=== PATIENT | male | born 1990 | race Caucasian/White ===

== ENCOUNTER 2020-02-03 18:02 | Emergency (ER) | payer OTHER ==
[2020-02-03 18:32] VITALS: BP 123/85
--- NOTE | 2020-02-03 18:54 | UC ---
Dental HPI - HPI Summary HPI Summary: Pt c/o right lower jaw pain and tooth tenderness. Pt reports a filling fell out 7 months prior and has been unable to follow up with a dentist due to loss of insurance and now COVID pandemic. Pt reports that pain is worsening over the last 24 hours. - History of Current Complaint Chief Complaint: UCDentalProblem Stated Complaint: DENTAL COMPLAINT Time Seen by Provider: 02/03/20 18:12 Hx Obtained From: Patient Onset/Duration: Gradual Onset, Lasting Days, Still Present, Worse Since - onset Severity: Moderate Pain Intensity: 7 Pain Scale Used: 0-10 Numeric Aggravating Factor(s): Cold, Chewing Alleviating Factor(s): Nothing Related History: Previous Dental Care on Same Tooth, Swelling - Allergies/Home Medications Allergies/Adverse Reactions: Allergies Allergy/AdvReac Type Severity Reaction Status Date / Time amoxicillin Allergy Unknown Unknown Verified 02/03/20 18:32 Reaction Details Home Medications: Home Medications Clindamycin Cap(NF) [Clindamycin Cap 300 mg Cap(NF)] 300 mg PO Q6H #40 cap 02/02 [Rx] Lidocaine 2% VISCOUS* [Xylocaine 2% Viscous*] 15 ml SWISH SPIT Q4H PRN #1 btl [Rx] traMADol TAB* [Ultram*] 50 mg PO Q12H PRN #10 tab MDD 2 02/03/20 [Rx] PMH/Surg Hx/FS Hx/Imm Hx Previously Healthy: Yes - Surgical History Surgical History: None - Family History Known Family History: Positive: Cardiac Disease - Social History Occupation: Employed Full-time Lives: With Family Alcohol Use: Occasionally Substance Use Type: Marijuana Smoking Status (MU): Never Smoked Tobacco Have You Smoked in the Last Year: No Review of Systems All Other Systems Reviewed And Are Negative: Yes Constitutional: Positive: Negative Skin: Positive: Negative Eyes: Positive: Negative ENT: Positive: Dental Pain Respiratory: Positive: Negative Cardiovascular: Positive: Negative Gastrointestinal: Positive: Negative Genitourinary: Positive: Negative Motor: Positive: Negative Neurovascular: Positive: Negative Musculoskeletal: Positive: Negative Neurological/Mental Status: Positive: Negative Psychological: Positive: Negative Is Patient Immunocompromised?: No Physical Exam Triage Information Reviewed: Yes Appearance: Pain Distress Vital Signs: Initial Vital Signs Temp 97.4 F 02/03/20 18:28 Pulse 68 02/03/20 18:28 Resp 16 02/03/20 18:28 BP 123/85 02/03/20 18:28 Pulse Ox 100 02/03/20 18:28 Vital Signs Reviewed: Yes Eye Exam: Normal ENT Exam: Normal Dental: Positive: Gross Decay/Caries @ - right lower molar, # 32 Neck exam: Normal Respiratory: Positive: No respiratory distress Cardiovascular Exam: Normal Musculoskeletal Exam: Normal Neurological Exam: Normal Psychological Exam: Normal Skin Exam: Normal Dental Complaint Course/Dx - Differential Dx/Diagnosis Differential Diagnosis/Dx: Dental Abscess, Dental Caries Provider Diagnosis: Pain, dental, Poor dentition Discharge ED - Sign-Out/Discharge Documenting (check all that apply): Patient Departure All imaging exams completed and their final reports reviewed: No Studies - Discharge Plan Condition: Stable Disposition: HOME Prescriptions: Clindamycin Cap(NF) [Clindamycin Cap 300 mg Cap(NF)] 300 mg PO Q6H #40 cap Lidocaine 2% VISCOUS* [Xylocaine 2% Viscous*] 15 ml SWISH SPIT Q4H PRN #1 btl PRN Reason: Pain - Mild traMADol TAB* [Ultram*] 50 mg PO Q12H PRN #10 tab MDD 2 PRN Reason: Pain - Mild Patient Education Materials: Dental Abscess (ED) Referrals: No Primary Care Phys,NOPCP [Primary Care Provider] - Additional Instructions: Please follow up with a dental care provider as soon as possible. - Billing Disposition and Condition Condition: STABLE Disposition: Home
== END 2020-02-03 18:49 | disposition home or self-care (01) ==
LOC: UCCORT 18:02
DX: K08.89 Other specified disorders of teeth and supporting structures (principal); Z88.0 Allergy status to penicillin; K02.9 Dental caries, unspecified
CPT/HCPCS: 99202; G0463